=== PATIENT | male | born 1965 | race American Indian/Alaskan Native ===

== ENCOUNTER 2019-03-08 08:55 | Emergency (ER) | payer OTHER ==
[2019-03-08 09:06] VITALS: BP 149/83
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
[2019-03-08 09:45] LABS: Basophils % (Auto) 0.3 % (0.0-1.8); Eosinophils % (Auto) 0.2 % (0.0-4.3); Hematocrit 43.8 % (35.5-45.6); Hemoglobin 14.8 gm/dl (11.8-15.2); Lymphocytes # (Auto) 1.9 K/mm3 (1.2-5.4); Lymphocytes % (Auto) 17.2 % (13.4-35.0); Mean Corpuscular HGB Conc 34 % (32-34); Mean Corpuscular Volume 92 fl (84-94); Monocytes # (Auto) 0.4 K/mm3 (0.0-0.8); Monocytes % (Auto) 3.7 % (0.0-7.3); Platelet Count 259 K/mm3 (140-440); Red Blood Count 4.78 M/mm3 (3.65-5.03); Red Cell Distribution Width 14.1 % (13.2-15.2)
[2019-03-08 10:07] LABS: BUN/Creatinine Ratio 9; Blood Urea Nitrogen 7 mg/dL (9-20); Calcium 9.5 mg/dL (8.4-10.2); Hemolysis Index 7
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
--- NOTE | 2019-03-08 10:52 | XRay Report ---
ABDOMEN 2 VIEW(S) INDICATION / CLINICAL INFORMATION: Abdominal pain, nausea vomiting and diarrhea since this morning. COMPARISON: None available. FINDINGS: TUBES / LINES: None. BOWEL GAS PATTERN: No significant abnormality. FREE AIR / EXTRALUMINAL GAS: None seen. ADDITIONAL FINDINGS: There appear to be 2 or 3 calcifications overlying the mid left kidney which cou ld represent renal stones. No right nephrolithiasis or calcifications overlying the course of the ure ters. IMPRESSION: Unremarkable bowel gas pattern. Left abdominal calcifications which could represent nephrolithiasis. Signer Name: Mikey Marshall Jr, MD Signed: 03/08/2019 10:47 AM Workstation Name: [id number]
[2019-03-08 11:14] LABS: Alanine Aminotransferase 16 units/L (7-56); Albumin 5.2 g/dL (3.9-5)
[2019-03-08 11:18] LABS: Bilirubin,Direct < 0.2 mg/dL (0-0.2)
[2019-03-08] MEDS ORDERED: PROTONIX IV ONE (12:20)
[2019-03-08] MEDS ORDERED: ZOFRAN ONE (12:46)
[2019-03-08] MEDS ORDERED: ZOFRAN IV ONE (13:33)
== END 2019-03-08 14:24 | disposition home or self-care (01) ==
LOC: ED 08:55
DX: R00.2 Palpitations (principal); R10.9 Unspecified abdominal pain; R11.2 Nausea with vomiting, unspecified; R19.7 Diarrhea, unspecified; F17.200 Nicotine dependence, unspecified, uncomplicated; F12.10 Cannabis abuse, uncomplicated; Z79.899 Other long term (current) drug therapy
CPT/HCPCS: 36415; 71046; 74019; 80048; 80076; 83690; 84439; 84443; 84484; 85025; 93005; 93010; 96374; 96375; 99284; C9113; J2405

== ENCOUNTER 2021-05-28 14:07 | Emergency (ER) | payer SELFPAY ==
[2021-05-28] MEDS ORDERED: SODIUM CHLORIDE 0.9% 500 ML 500 ML IV ONE (14:13)
[2021-05-28 14:42] LABS: Basophils # (Auto) 0.1 K/mm3 (0.0-0.1); Basophils % (Auto) 0.6 % (0.0-1.8); Eosinophils % (Auto) 0.2 % (0.0-4.3); Hematocrit 41.6 % (35.5-45.6); Hemoglobin 13.7 gm/dl (11.8-15.2); Lymphocytes # (Auto) 2.2 K/mm3 (1.2-5.4); Lymphocytes % (Auto) 16.6 % (13.4-35.0); Mean Corpuscular HGB Conc 33 % (32-34); Mean Corpuscular Volume 91 fl (84-94); Monocytes # (Auto) 1.2 K/mm3 (0.0-0.8); Platelet Count 273 K/mm3 (140-440); Red Blood Count 4.58 M/mm3 (3.65-5.03); Red Cell Distribution Width 13.7 % (13.2-15.2)
[2021-05-28 14:58] LABS: Albumin 4.1 g/dL (3.9-5); BUN/Creatinine Ratio 13; Blood Urea Nitrogen 12 mg/dL (9-20); Hemolysis Index 4
--- NOTE | 2021-05-28 15:19 | Ultrasound Report ---
ULTRASOUND SCROTUM INDICATION / CLINICAL INFORMATION: swelling to right testicle.. COMPARISON: None available. FINDINGS -- RIGHT TESTIS: Size = 3.8 cm. - Appearance: There is microlithiasis. - Cyst or Mass: None. - Color Doppler Flow: No significant abnormality. EPIDIDYMIS: 5 mm and 4 mm epididymal head cysts. The right epididymis is asymmetrically enlarged and hyperemic. HYDROCELE: Small VARICOCELE: None demonstrated. FINDINGS -- LEFT TESTIS: Size = 4.3 cm. - Appearance: There is microlithiasis. - Cyst or Mass: None. - Color Doppler Flow: No significant abnormality. EPIDIDYMIS: No significant abnormality. HYDROCELE: No significant hydrocele VARICOCELE: None demonstrated. ADDITIONAL FINDINGS: None. IMPRESSION: 1. Findings consistent with right epididymitis with mild right hydrocele. 2. Testicular microlithiasis. No intratesticular mass or other worrisome findings. In the absence of any other risk factors for testicular cancer (e.g., personal history of testicular cancer, a father or brother with testicular cancer, history of cryptorchidism or maldescent, testicul ar atrophy, or other risk factors), no further imaging or biochemical follow-up is necessary; all george t is recommended is routine monthly testicular self-examination. However, if the patient has risk factors for testicular cancer, referral to a urologist for evaluatio n and determination of an optimal follow-up strategy is recommended. REFERENCE: Testicular Microlithiasis: What Should You Recommend Frieda Thurston, Stephane hubbard, and Stephane Mario. [employer] Journal [employer] Roentgenology 2016 206:6, [id number] Signer Name: Lucio Zhao MD Signed: 05/28/2021 3:15 PM Workstation Name: [id number]
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
--- NOTE | 2021-05-28 15:58 | Event Note ---
ED Screening Note Date of service: 05/28/21 Time: 15:30 ED Screening Note: 56-year-old -English male presents to the emergency room complaining of right testicular swelling. Patient states that he noticed it on Friday. Patient states that he had done about 150 sit ups on Friday and thought maybe he was having some tightness in his testicle secondary to doing sit ups. Patient states that he did not really notice it per day until he looked down and noticed that his right testicle was tighter than usual and larger than usual. Patient denies any penile discharge. Patient has no concerns for STD. It was noted that patient had a low-grade fever of 100.6 and mildly tachycardic at 106.. This initial assessment/diagnostic orders/clinical plan/treatment(s) is/are subject to change based on patients health status, clinical progression and re- assessment by fellow clinical providers in the ED. Further treatment and workup at subsequent clinical providers discretion. Patient/guardian urged not to elope from the ED as their condition may be serious if not clinically assessed and managed. Initial orders include: Sepsis protocol was placed by triage nurse and ultrasound was ordered by triage nurse. Urinalysis is still pending
[2021-05-28 16:03] LABS: Alanine Aminotransferase < 5 units/L (7-56)
[2021-05-28] MEDS ORDERED: ACETAMINOPHEN 325 MG TAB PO ONE (16:35)
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
[2021-05-28] MEDS ORDERED: hydrALAZINE 20 MG/1 ML INJ IV ONE (17:19)
[2021-05-28 17:42] LABS: Bacteria,Urine 2+ /HPF (Negative); Bilirubin,Urine NEG (Negative); Blood,Urine LG (Negative); Color,Urine Amber (Yellow); Mucus,Urine 3+ /HPF
[2021-05-28 17:43] LABS: WBC,Urine > 182.0 /HPF (0.0-6.0)
[2021-05-28 18:34] VITALS: BP 161/91
[2021-05-28 19:04] LABS: INR 1.04 (0.87-1.13)
--- NOTE | 2021-05-29 19:03 | Electrocardiograph Report ---
[facility] Test Date: 2021-05-28 Test Time: 15:43:20 Pat Name: THAD WOO Department: Room: Gender: M Director Of Public Relations: JAY : 1965 Requested By: PERFECTO JASSO Order Number: [id number] Reading MD: Norma Gamboa Measurements Intervals [place] Rate: 91 P: 86 AR: 131 QRS: 82 QRSD: 89 T: 9 QT: 349 QTc: 430 Interpretive Statements Sinus rhythm Biatrial enlargement No previous ECG available for comparison Electronically Signed On 05-29-2021 19:03:20 EDT by Norma Gamboa
== END 2021-05-28 18:32 | disposition home or self-care (01) ==
LOC: ED 14:07
DX: N39.0 Urinary tract infection, site not specified (principal); N45.1 Epididymitis; N50.811 Right testicular pain; N50.89 Other specified disorders of the male genital organs; I10 Essential (primary) hypertension; Z98.890 Other specified postprocedural states; F17.290 Nicotine dependence, other tobacco product, uncomplicated
CPT/HCPCS: 36415; 71045; 80053; 81001; 82140; 82805; 85025; 85610; 87040; 87076; 87086; 87186; 93005; 93975; 96374; 99284; J0360; J7040